=== PATIENT | female | born 1965 | race Caucasian/White ===

== ENCOUNTER 2018-02-02 07:15 | Day surgery (SDC) | payer BC, OTHER ==
[2018-01-05 14:52] VITALS: BMI 23.3
[~2018-02-02 07:15] MED LIST: BACITRACIN 50,000 UNITS VIAL TP ONE; BUPIVACAINE HCL/PF (5 MG/ML) 30 ML VIAL IJ ONE; LIDOCAINE HCL 1%, 10 MG/ML (20ML VIAL) INF ONE
[2018-02-02] MEDS ORDERED: LIDOCAINE HCL 1%, 10 MG/ML (20ML VIAL) ONE (08:28)
[2018-02-02] MEDS ORDERED: BUPIVACAINE HCL/PF 0.5% (5MG/ML) 10 ML VIAL ONE (08:29)
[2018-02-02] MEDS ORDERED: MIDAZOLAM HCL 2 MG/2 ML SINGLE DOSE VIAL ONE ×3 (08:34→09:44)
[2018-02-02] MEDS ORDERED: ceFAZolin SODIUM 1 GM VIAL ONE (08:34)
[2018-02-02] MEDS ORDERED: PROPOFOL 20 ML ONE (08:34)
[2018-02-02] MEDS ORDERED: KETOROLAC TROMETHAMINE 30 MG/1 ML VIAL ONE (08:34)
[2018-02-02] MEDS ORDERED: ceFAZolin SODIUM 1 GM VIAL IVPB ONE (08:46)
[2018-02-02] MEDS ORDERED: LIDOCAINE HCL 1%, 10 MG/ML (20ML VIAL) INF ONE ×3 (09:18→09:45)
[2018-02-02] MEDS ORDERED: BACITRACIN 50,000 UNITS VIAL TP ONE (09:42)
[2018-02-02] MEDS ORDERED: ACETAMINOPHEN 325 MG TABLET (FP) PO PRN (10:08)
[2018-02-02] MEDS ORDERED: ONDANSETRON 4 MG/2 ML VIAL IVPUSH PRN (10:13)
[2018-02-02] MEDS ORDERED: PROMETHAZINE HCL 25 MG/1 ML VIAL IVPUSH PRN (10:13)
[2018-02-02] MEDS ORDERED: oxyCODONE HCL 5 MG TABLET PO PRN (10:13)
[2018-02-02] MEDS ORDERED: CEPHALEXIN MONOHYDRATE 500 MG CAPSULE (UD) PO SCH (10:15)
[2018-02-02] MEDS ORDERED: LACTATED RINGERS SOLUTION 1,000 ML IV SCH (10:15)
--- NOTE | 2018-02-02 10:15 | OP ---
Operative Note - Note: Operative Date: 02/02/18 Pre-Operative Diagnosis: OAB WITH URGENCY AND FREC. Operation: interstim bladder modulation inplantation of battery Implants: [employer] neuromodulation system with battery Post-Operative Diagnosis: Same as Pre-op Surgeon: Yovana Kennedy Anesthesia: General Specimens Removed: none Estimated Blood Loss (mls): 0 Blood Volume Replaced (mls): 0 Fluid Volume Replaced (mls): 0 Operative Report Dictated: Yes
--- NOTE | 2018-02-02 10:34 | OP ---
DATE OF OPERATION: 02/02/2018 PREOPERATIVE DIAGNOSIS: Overactive bladder resistant to medication therapy. OPERATIVE PROCEDURE: The [employer] InterStim bladder neuromodulation unit. ANESTHESIA: Local and neuroleptic. POSITION: Prone. DESCRIPTION OF PROCEDURE: Under above stated anesthesia, patient is prepped and draped in the usual manner. She is placed in the prone position. After isolation of sacral root 3, using a C-arm, a catheter was placed into the right 3rd sacral root. An elected was then passed through the catheter and tunneled to the right gluteus gavin area. A 3- to 4-cm vertical incision was made above the insertion of the external gluteus gavin muscle at the level of the iliosacral joint. This was carried down through skin and subcutaneous tissue. The electrode was then tunneled from the sacral spine to the area of the battery. The electrode was then connected to the battery. Proper testing was performed and a good mehreen response with flicking of the toe and fibrillation of the perianal muscles noted. The wound was then irrigated with antibiotic solution, the battery attached to the electrode was placed into the wound. The wound was closed 2 layers of 3-0 Vicryl suture ligature. The skin was closed with riaz. The wound was also dressed for hemostasis. The patient tolerated the procedure well. She returned to the recovery room in good condition. PRAVEENA VICTOR M.D. 1 [id number]
--- NOTE | 2018-02-02 10:43 | HP ---
DATE OF ADMISSION: 02/02/2018 DATE OF DICTATION: 02/02/2018 Patient is a 52-year-old female with history of interstitial cystitis including frequency, urgency, hesitancy, feelings of incomplete bladder emptying, as well as urge incontinence. The patient has been on multiple medication protocols as well as Kegel exercises without any help. Part one of sacral nerve stimulation implant was performed in the office, and patient experienced excellent results with a decrease in her frequency and urgency. Today, she is admitted to undergo permanent implantation of the sacral modulation tubing as well as the battery. The procedure has been explained fully to the patient, and she agrees. She is allergic to CODEINE. She is G2, P2. PHYSICAL EXAMINATION: Abdomen: Soft. Pelvic: Revealed normal meatus, normal vaginal mucosa. No cystocele or rectocele was seen. Luis A test is negative. No pelvic masses were noted. Post-void residual was 85 mL. Vital Signs: The patient's blood pressure is 105/84, pulse 66, rate 60 and regular. Her BMI is 24.1. Her BUN was 11 and creatinine 0.8. A urinalysis revealed 3+ blood. She denies ethanolism. She does smoke occasionally, and she stated that she developed blisters as well as dysphagia after ingesting cough medicine that contained HYDROCODEINE. She has no significant past medical history. Her father had rheumatoid arthritis as well as high cholesterol. IMPRESSION AT PRESENT: Overactive bladder in a healthy, 52-year-old female who has failed multiple medical treatments including Kegel exercises, had an excellent response to external sacral nerve modulation. We will plan to internalize the system. Denise [id number]
[2018-02-02 11:07] VITALS: TEMP 97.8
[2018-02-02 13:32] VITALS: BP 109/60; PULSE 63
== END 2018-02-02 13:20 | disposition home or self-care (01) ==
LOC: JASU-SURG 07:15
PROVIDERS: ATTEND Urology
PROC: 01HY0MZ Insertion of Neurostimulator Lead into Peripheral Nerve, Open Approach (ICD-10-PCS; 2018-02-02)
PROC: 0JH70BZ Insertion of Single Array Stimulator Generator into Back Subcutaneous Tissue and Fascia, Open Approach (ICD-10-PCS; principal; 2018-02-02 08:30)
DX: N32.81 Overactive bladder (principal); N30.10 Interstitial cystitis (chronic) without hematuria; N39.41 Urge incontinence; R35.0 Frequency of micturition
CPT/HCPCS: 64581; 64590; L8680; L8686; 76000-TC-FY; 94760

== ENCOUNTER 2020-08-15 05:40 | Day surgery (SDC) | payer BC, OTHER ==
[2020-08-13 19:00] VITALS: BMI 23.9
[2020-08-15] MEDS ORDERED: LIDOCAINE HCL 1%, 10 MG/ML (20ML VIAL) ONE ×2 (16:32→18:25)
[2020-08-15] MEDS ORDERED: fentaNYL CITRATE 250 MCG/5 ML VIAL ONE (17:05)
[2020-08-15] MEDS ORDERED: GLYCOPYRROLATE 0.2 MG/1 ML VIAL ONE (17:05)
[2020-08-15] MEDS ORDERED: LIDOCAINE HCL/PF 2% SDV 5ML VIAL ONE ×2 (17:05→18:23)
[2020-08-15] MEDS ORDERED: PROPOFOL 20 ML ONE ×2 (17:06)
[2020-08-15] MEDS ORDERED: MIDAZOLAM HCL 2 MG/2 ML SINGLE DOSE VIAL ONE (17:07)
[2020-08-15] MEDS ORDERED: ROCURONIUM BROMIDE 100 MG/10 ML VIAL ONE (17:07)
[2020-08-15] MEDS ORDERED: LIDOCAINE HCL 1% PRESERVATIVE FREE - 30ML VIAL INF ONE ×2 (17:44)
[2020-08-15] MEDS ORDERED: SODIUM CHLORIDE 0.9% P/F 10 ML VIAL IJ ONE (18:23)
[2020-08-15] MEDS ORDERED: ceFAZolin SODIUM 1 GM VIAL ONE (18:23)
[2020-08-15] MEDS ORDERED: DEXAMETHASONE SOD PHOSPHATE 4 MG/1 ML VIAL ONE (18:23)
[2020-08-15] MEDS ORDERED: ONDANSETRON 4 MG/2 ML VIAL ONE (18:23)
[2020-08-15] MEDS ORDERED: LIDOCAINE HCL 1%, 10 MG/ML (50 mL VIAL) INF ONE (18:46)
[2020-08-15] MEDS ORDERED: oxyCODONE HCL 5 MG TABLET ONE (19:14)
[2020-08-15] MEDS ORDERED: oxyCODONE HCL 5 MG TABLET PO PRN (19:14)
[2020-08-15] MEDS ORDERED: ONDANSETRON 4 MG/2 ML VIAL IVPUSH PRN (19:14)
[2020-08-15] MEDS ORDERED: PROMETHAZINE HCL 25 MG/1 ML VIAL IVPUSH PRN (19:14)
[2020-08-15 20:17] VITALS: BP 146/86; PULSE 70; TEMP 96.6
== END 2020-08-15 20:15 | disposition home or self-care (01) ==
LOC: JASU-SURG 05:40
PROVIDERS: ATTEND Urology
PROC: 0JH70BZ Insertion of Single Array Stimulator Generator into Back Subcutaneous Tissue and Fascia, Open Approach (ICD-10-PCS; 2020-08-15)
PROC: 01PY0MZ Removal of Neurostimulator Lead from Peripheral Nerve, Open Approach (ICD-10-PCS; 2020-08-15)
PROC: 01HY0MZ Insertion of Neurostimulator Lead into Peripheral Nerve, Open Approach (ICD-10-PCS; 2020-08-15)
PROC: 4B01XVZ Measurement of Peripheral Nervous Stimulator, External Approach (ICD-10-PCS; 2020-08-15)
PROC: 0JPT0MZ Removal of Stimulator Generator from Trunk Subcutaneous Tissue and Fascia, Open Approach (ICD-10-PCS; principal; 2020-08-15 15:30)
DX: Z45.42 Encounter for adjustment and management of neurostimulator (principal); R35.0 Frequency of micturition; R35.1 Nocturia; R39.15 Urgency of urination
CPT/HCPCS: 64581; 64590; C1778; L8679; 76000-TC-FY; 88300-TC; 94760

== ENCOUNTER 2021-03-09 21:22 | Emergency (ER) | payer BC, OTHER ==
[2021-03-09 21:33] VITALS: BP 138/88; PULSE 78; TEMP 98.2; BMI 24.6
== END 2021-03-09 22:20 | disposition home or self-care (01) ==
LOC: JERFT 21:22
DX: N30.00 Acute cystitis without hematuria (principal)
CPT/HCPCS: 99283-25